=== PATIENT | male | born 1995 | race Caucasian/White ===

== ENCOUNTER 2023-06-28 21:02 | Emergency (ER) | payer BC, MEDICAID ==
[~2023-06-28] VITALS: Ht 177.8 cm; Wt 114.0 kg
[2023-06-28 21:09] VITALS: BP 141/103; RESP 16; TEMP 99; O2SAT 98
[2023-06-28 21:12] VITALS: PULSE 113
[2023-06-28] MEDS ORDERED: IBUPROFEN 800MG TABLET PO ONE (22:00)
[2023-06-28] MEDS ORDERED: IBUP-2029 MT (23:06)
== END 2023-06-29 02:59 | disposition home or self-care (01) ==
LOC: ER 21:02
DX: S90.02XA Contusion of left ankle, initial encounter (principal); W50.2XXA Accidental twist by another person, initial encounter; Y93.89 Activity, other specified; Y92.89 Other specified places as the place of occurrence of the external cause; Y99.8 Other external cause status
CPT/HCPCS: 29515; 73610; 73630; 99284